=== PATIENT | male | born 1985 | race Caucasian/White ===

== ENCOUNTER 2017-10-03 04:39 | Emergency (ER) | payer MEDICARE, MEDICAID ==
[2017-10-03 05:28] LABS: ABS Basophils 0.1 10^3/ul (0-0.2); ABS Eosinophils 0.1 10^3/ul (0-0.6); ABS Lymphocytes 1.8 10^3/ul (1.0-4.8); ABS Monocytes 1.7 10^3/ul (0-0.8); ABS Neutrophils 12.5 10^3/ul (1.5-7.7); ABS Nucleated RBC 0 10^3/ul; Eosinophil % 0.8 % (0-6); Hematocrit 44 % (42-52); Hemoglobin 15.1 g/dl (14.0-18.0); Lymphocyte % 11.2 % (25-47); Mean Corpuscular HGB Conc 35 g/dl (31-36); Mean Corpuscular Hemoglobin 30 pg (27-31); Mean Corpuscular Volume 87 fL (80-94); Mean Platelet Volume 7 um3 (7.4-10.4); Nucleated Red Blood Cells % 0; Platelet Count 288 10^3/ul (150-450); Red Blood Count 5.04 10^6/ul (4.0-5.4); Red Cell Distribution Width 14 % (10.5-15); White Blood Count 16.2 10^3/ul (3.5-10.8)
[2017-10-03 05:33] LABS: INR 1.16 (0.77-1.02)
[2017-10-03 05:43] LABS: EGFR Non-African American 98.4 (>60)
[2017-10-03] MEDS ORDERED: NS 0.9% 1000 ML* 1,000 ML IV ONE (06:19)
--- NOTE | 2017-10-03 08:14 | RAD ---
HISTORY: Abdominal pain COMPARISONS: None VIEWS: Frontal views of the abdomen. FINDINGS: BOWEL: There is a nonobstructive bowel gas pattern. There is a large amount of stool within the colon. CALCULI: There are no abnormal calculi. BONES AND SOFT TISSUES: There are no osseous abnormalities. OTHER FINDINGS: There is elevation of the right hemidiaphragm There is no subphrenic gas. IMPRESSION: 1. NONOBSTRUCTIVE BOWEL GAS PATTERN. 2. ELEVATION OF THE RIGHT HEMIDIAPHRAGM.
[2017-10-03 08:23] LABS: Urine Appearance Cloudy; Urine Blood Negative (Negative); Urine Color Yellow; Urine Ketones Negative (Negative); Urine Protein Negative (Negative); Urine Specific Gravity 1.024 (1.010-1.030); Urine Urobilinogen Positive (Negative)
[2017-10-03] MEDS ORDERED: Iohexol 300* (CONTRAST) 10 ML SDV IV ONE (09:59)
--- NOTE | 2017-10-03 10:05 | ED ---
Leora Lake Alfonso, scribed for Luiz Kwong MD on 10/03/17 at 0506 . Abdominal Pain/Male - HPI Summary HPI Summary: This patient is a 31 year old M BIBA to [facility] accompanied by brother with a chief complaint of RLQ abdominal pain gradually worsening since earlier tonight. The patient rates the pain 7/10 in severity. Symptoms aggravated by deep breaths and cough. Symptoms alleviated by nothing. Patient denies urinary symptoms. - History of Current Complaint Chief Complaint: EDAbdPain Stated Complaint: ABD PAIN Hx Obtained From: Patient Onset/Duration: Gradual Onset, Still Present Timing: Constant Severity Currently: Moderate Pain Intensity: 7 Pain Scale Used: 0-10 Numeric Location: Discrete At: RLQ Aggravating Factor(s): Deep Breaths, Other: - Cough Alleviating Factor(s): Nothing Associated Signs And Symptoms: Negative: Urinary Symptoms - Allergies/Home Medications Allergies/Adverse Reactions: Allergies Allergy/AdvReac Type Severity Reaction Status Date / Time No Known Allergies Allergy Verified 08/10/16 20:45 PMH/Surg Hx/FS Hx/Imm Hx Endocrine/Hematology History: Denies: Hx Anticoagulant Therapy, Hx Diabetes, Hx Thyroid Disease Cardiovascular History: Reports: Hx Hypertension - On no Rx yet. Denies: Hx Congestive Heart Failure, Hx Deep Vein Thrombosis, Hx Myocardial Infarction, Hx Pacemaker/ICD Respiratory History: Reports: Hx Asthma Denies: Hx Chronic Obstructive Pulmonary Disease (COPD), Hx Lung Cancer, Hx Pneumonia, Hx Pulmonary Embolism GI History: Denies: Hx Gall Bladder Disease, Hx Gastrointestinal Bleed, Hx Ulcer, Hx Urosepsis History: Denies: Hx Kidney Stones, Hx Renal Disease Neurological History: Denies: Hx Dementia, Hx Migraine, Hx Seizures, Hx Transient Ischemic Attacks (TIA) Psychiatric History: Denies: Hx Anxiety, Hx Depression, Hx Schizophrenia, Hx Bipolar Disorder - Family History Known Family History: Negative: Cardiac Disease, Hypertension - Social History Alcohol Use: Occasionally Hx Substance Use: Yes Substance Use Type: Reports: Marijuana. Denies: Cocaine Hx Tobacco Use: Yes Smoking Status (MU): Current Some Day Smoker Amount Used/How Often: 1/2 ppd Review of Systems Positive: Abdominal Pain Positive: no symptoms reported All Other Systems Reviewed And Are Negative: Yes Physical Exam - Summary Physical Exam Summary: Appearance: Well-appearing, Well-nourished Skin: Warm Eyes: Exotropia in right eye consistent with baseline. ENT: Normal Neck: Supple, nontender Respiratory: Clear to auscultation Cardiovascular: Normal Abdomen: Soft, mild right CVA tenderness, multiple old abdominal scars from childhood surgeries. No rebound or guarding on palpation. Negative rovsing's, psoas, and obturator sign. Bowel: Present Musculoskeletal: LUE contraction consistent with baseline Neurological: Normal, A&Ox3, speaking in full sentences Psychiatric: Normal Triage Information Reviewed: Yes Vital Signs On Initial Exam: Initial Vitals BP 129/94 10/03/17 04:51 Vital Signs Reviewed: Yes Diagnostics - Vital Signs Vital Signs Temp Pulse Resp BP Pulse Ox 10/03/17 08:00 107 121/72 98 10/03/17 07:30 106 97 10/03/17 07:28 106 97 10/03/17 07:27 118/71 10/03/17 05:00 109 130/86 99 10/03/17 04:57 37.1 C 113 16 129/94 100 10/03/17 04:53 112 99 10/03/17 04:51 129/94 - Laboratory Lab Results: Lab Results 10/03/17 10/03/17 10/03/17 Range/Units 05:15 05:15 05:15 WBC 16.2 H (3.5-10.8) 10^3/ul RBC 5.04 (4.0-5.4) 10^6/ul Hgb 15.1 (14.0-18.0) g/dl Hct 44 (42-52) % MCV 87 (80-94) fL MCH 30 (27-31) pg MCHC 35 (31-36) g/dl RDW 14 (10.5-15) % Plt Count 288 (150-450) 10^3/ul MPV 7 L (7.4-10.4) um3 Neut % (Auto) 76.8 (38-83) % Lymph % (Auto) 11.2 L (25-47) % Pettis % (Auto) 10.6 H (1-9) % Eos % (Auto) 0.8 (0-6) % Baso % (Auto) 0.6 (0-2) % Absolute Neuts (auto) 12.5 H (1.5-7.7) 10^3/ul Absolute Lymphs (auto) 1.8 (1.0-4.8) 10^3/ul Absolute Monos (auto) 1.7 H (0-0.8) 10^3/ul Absolute Eos (auto) 0.1 (0-0.6) 10^3/ul Absolute Basos (auto) 0.1 (0-0.2) 10^3/ul Absolute Nucleated RBC 0 10^3/ul Nucleated RBC % 0 INR (Anticoag Therapy) 1.16 H (0.77-1.02) Sodium 135 (133-145) mmol/L Potassium 4.0 (3.5-5.0) mmol/L Chloride 100 L (101-111) mmol/L Carbon Dioxide 29 (22-32) mmol/L Anion Gap 6 (2-11) mmol/L BUN 24 (6-24) mg/dL Creatinine 0.89 (0.67-1.17) mg/dL Est GFR ( Amer) 126.6 (>60) Est GFR (Non-Af Amer) 98.4 (>60) BUN/Creatinine Ratio 27.0 H (8-20) Glucose 100 (70-100) mg/dL Calcium 9.9 (8.6-10.3) mg/dL Magnesium 2.0 (1.9-2.7) mg/dL Total Bilirubin 0.50 (0.2-1.0) mg/dL AST 13 (13-39) U/L ALT 16 (7-52) U/L Alkaline Phosphatase 51 (34-104) U/L C-Reactive Protein 23.24 H (< 5.00) mg/L Total Protein 6.9 (6.4-8.9) g/dL Albumin 4.4 (3.2-5.2) g/dL Globulin 2.5 (2-4) g/dL Albumin/Globulin Ratio 1.8 (1-3) Lipase 22 (11.0-82.0) U/L Urine Color Urine Appearance Urine pH (5-9) Ur Specific Muse (1.010-1.030) Urine Protein (Negative) Urine Ketones (Negative) Urine Blood (Negative) Urine Nitrate (Negative) Urine Bilirubin (Negative) Urine Urobilinogen (Negative) Ur Leukocyte Esterase (Negative) Urine Glucose (Negative) 10/03/17 Range/Units 07:53 WBC (3.5-10.8) 10^3/ul RBC (4.0-5.4) 10^6/ul Hgb (14.0-18.0) g/dl Hct (42-52) % MCV (80-94) fL MCH (27-31) pg MCHC (31-36) g/dl RDW (10.5-15) % Plt Count (150-450) 10^3/ul MPV (7.4-10.4) um3 Neut % (Auto) (38-83) % Lymph % (Auto) (25-47) % Pettis % (Auto) (1-9) % Eos % (Auto) (0-6) % Baso % (Auto) (0-2) % Absolute Neuts (auto) (1.5-7.7) 10^3/ul Absolute Lymphs (auto) (1.0-4.8) 10^3/ul Absolute Monos (auto) (0-0.8) 10^3/ul Absolute Eos (auto) (0-0.6) 10^3/ul Absolute Basos (auto) (0-0.2) 10^3/ul Absolute Nucleated RBC 10^3/ul Nucleated RBC % INR (Anticoag Therapy) (0.77-1.02) Sodium (133-145) mmol/L Potassium (3.5-5.0) mmol/L Chloride (101-111) mmol/L Carbon Dioxide (22-32) mmol/L Anion Gap (2-11) mmol/L BUN (6-24) mg/dL Creatinine (0.67-1.17) mg/dL Est GFR ( Amer) (>60) Est GFR (Non-Af Amer) (>60) BUN/Creatinine Ratio (8-20) Glucose (70-100) mg/dL Calcium (8.6-10.3) mg/dL Magnesium (1.9-2.7) mg/dL Total Bilirubin (0.2-1.0) mg/dL AST (13-39) U/L ALT (7-52) U/L Alkaline Phosphatase (34-104) U/L C-Reactive Protein (< 5.00) mg/L Total Protein (6.4-8.9) g/dL Albumin (3.2-5.2) g/dL Globulin (2-4) g/dL Albumin/Globulin Ratio (1-3) Lipase (11.0-82.0) U/L Urine Color Yellow Urine Appearance Cloudy Urine pH 7.0 (5-9) Ur Specific Muse 1.024 (1.010-1.030) Urine Protein Negative (Negative) Urine Ketones Negative (Negative) Urine Blood Negative (Negative) Urine Nitrate Negative (Negative) Urine Bilirubin Negative (Negative) Urine Urobilinogen Positive H (Negative) Ur Leukocyte Esterase Negative (Negative) Urine Glucose Negative (Negative) Result Diagrams: 10/03/17 05:15 10/03/17 05:15 Lab Statement: Any lab studies that have been ordered have been reviewed, and results considered in the medical decision making process. - Radiology Abdomen X-Ray Radiology Interpretation Completed By: ED Physician - negative for any acute patholog Abdominal Pain Fem Course/Dx - Course Assessment/Plan: ct neg for acute pathology, pt feels better after course in ED , instructed to fu wt primary care physician and to return for any wrosening or concerning sxs. agrees to and understnads dc instructinos. - Diagnoses Provider Diagnoses: Colitis Discharge - Discharge Plan Condition: Stable Disposition: HOME Prescriptions: traMADol TAB* [Ultram*] 25 mg PO Q6HR PRN #10 tab MDD 4 PRN Reason: Pain Patient Education Materials: Colitis (ED) Referrals: Westley Galindo MD [Medical Doctor] - Liane Nair MD [Primary Care Provider] - Additional Instructions: Please follow up with Dr. Galindo, channel opener. Follow up with your primary care provider. RETURN TO THE ED FOR ANY WORSENING OR NEW SYMPTOMS. The documentation as recorded by the Leora francisco Alfonso accurately reflects the service I personally performed and the decisions made by , Luiz Kwong MD.
--- NOTE | 2017-10-03 13:22 | RAD ---
INDICATION: RIGHT lower quadrant pain. COMPARISON: Abdomen radiograph the same date. TECHNIQUE: Multidetector CT images were obtained from the lung bases to the ischial tuberosities with 72 mL Omnipaque 300 IV and oral contrast. Multiplanar reformation. REPORT: Unremarkable visualized inferior thorax. The liver, gallbladder, pancreas, and spleen are unremarkable. Negative for CT abnormality of the upper GI or small bowel. Normal appendix visualized anterior to the RIGHT psoas muscle at the pelvis. There is mural thickening at the proximal segment of the hepatic flexure of the colon with significant perienteric inflammatory change and small volume of fluid in the RIGHT paracolic gutter. No free air evident. Mild burden of colonic diverticulosis without definitive visualized inflamed diverticula at the level of the splenic flexure. Moderate rectal distention with formed stool. Normal adrenal glands. Unremarkable kidneys with symmetric nephrograms and pyelograms. Unremarkable ureters and partially distended urinary bladder. No suspicious finding of the visualized male urogenital structures. Negative for lymphadenopathy. Normal diameter abdominal aorta and iliac arteries with mild atherosclerotic plaque. Physiologic distention of the IVC. Negative for suspicious osseous lesions. IMPRESSION: 1. Mural thickening and perienteric inflammatory change at the proximal segment of the hepatic flexure of the colon. Negative for free air or perienteric abscess. Small volume of free fluid at the RIGHT paracolic gutter. No definitive associated inflamed appearing diverticula to strongly favor acute diverticulitis. Consider focal colitis, potential inflammatory bowel disease, and potential colonic neoplasm. 2. Normal appendix documented. 3. Negative for lymphadenopathy. 4. Negative for lesions of the solid abdominal viscera.
[2017-10-03 14:54] VITALS: BP 133/74
--- NOTE | 2017-10-04 09:20 | ED ---
[place] Angela, scribed for Julio Gar MD on 10/03/17 at 0924 . Progress - Progress Note Progress Note: This pt was signed out by Dr. Kwong, pending disposition, awaiting labs. Pt is a 31 y/o male presenting to [facility] c/o RLQ abdominal pain gradually worsening since earlier last night. On re-evaluation, pt still has pain and notes back pain. Physical exam: VITAL SIGNS: Reviewed. GENERAL: Patient is a well-developed and nourished male who is lying comfortable in the stretcher. Patient is not in any acute respiratory distress. HEAD AND FACE: No signs of trauma. No ecchymosis, hematomas or skull depressions. No sinus tenderness. EYES: PERRLA, EOMI x 2, No injected conjunctiva, no nystagmus. EARS: Hearing grossly intact. Ear canals and tympanic membranes are within normal limits. MOUTH: Oropharynx within normal limits. NECK: Supple, trachea is midline, no adenopathy, no JVD, no carotid bruit, no c- spine tenderness, neck with full ROM. CHEST: Symmetric, no tenderness at palpation LUNGS: Clear to auscultation bilaterally. No wheezing or crackles. CVS: Regular rate and rhythm, S1 and S2 present, no murmurs or gallops appreciated. ABDOMEN: Soft. Right lower quadrant tenderness. No signs of distention. No rebound no guarding, and no masses palpated. Bowel sounds are normal. Right costovertebral tenderness. EXTREMITIES: FROM in all major joints, no edema, no cyanosis or clubbing. NEURO: Alert and oriented x 3. No acute neurological deficits. Speech is normal and follows commands. SKIN: Dry and warm Pt will be discharged home, in stable condition, with a diagnosis of focal colitis. - Results/Orders Results/Orders: CT Abdomen/Pelvis, per radiologist: Impression: 1. Mural thickening and perienteric inflammatory change at the proximal segment of the hepatic flexure of the colon. Negative for free air or perienteric abscess. Small volume of free fluid at the RIGHT paracolic gutter. No definitive associated inflamed appearing diverticula to strongly favor acute diverticulitis. Consider focal colitis, potential inflammatory bowel disease, and potential colonic neoplasm. 2. Normal appendix documented. 3. Negative for lymphadenopathy. 4. Negative for lesions of the solid abdominal viscera. ED physician has reviewed this radiology report and agrees. Re-Evaluation - Re-Evaluation First Eval Re-Evaluation Time: 09:08 Comment: Pt still has abd pain and endorses back pain. Second Eval Re-Evaluation Time: 13:50 Comment: I reviewed the abdomen/pelvis CT with the pt. Course/Dx - Course Course Of Treatment: This pt was signed out by Dr. Kwong to follow up on the abdomen/pelvis CT. CT abdomen/pelvis shows 1. Mural thickening and perienteric inflammatory change at the proximal segment of the hepatic flexure of the colon. Negative for free air or perienteric abscess. Small volume of free fluid at the RIGHT paracolic gutter. No definitive associated inflamed appearing diverticula to strongly favor acute diverticulitis. Consider focal colitis, potential inflammatory bowel disease, and potential colonic neoplasm. 2. Normal appendix documented. 3. Negative for lymphadenopathy. 4. Negative for lesions of the solid abdominal viscera. Test results show WBC of 16.2, CRP of 23.2. UA is negative for UTI. It seems the pt has colitis, therefore he was advised to follow up with GI to rule out any type of malignancy. Pt is hemodynamically stable, alert and oriented x3. Pt will be discharged home, in stable condition , with a diagnosis of focal colitis. - Diagnoses Provider Diagnoses: Colitis The documentation as recorded by the Robin francisco Angela accurately reflects the service I personally performed and the decisions made by me, Julio Gar MD.
== END 2017-10-03 14:52 | disposition home or self-care (01) ==
LOC: ED 04:39
DX: K52.9 Noninfective gastroenteritis and colitis, unspecified (principal)
CPT/HCPCS: 36415; 74000; 74177; 80053; 81003; 83690; 83735; 85025; 85610; 86140; 96360; 99284; Q9967

== ENCOUNTER → 2019-03-06 13:47 | Emergency (ER) | payer MEDICARE, MEDICAID ==
[2019-03-06 16:45] LABS: ABS Basophils 0.1 10^3/ul (0-0.2); ABS Eosinophils 0.2 10^3/ul (0-0.6); ABS Monocytes 0.9 10^3/ul (0-0.8); ABS Neutrophils 4.3 10^3/ul (1.5-7.7); Eosinophil % 2.6 %; Hematocrit 46 % (42-52); Hemoglobin 15.5 g/dL (14.0-18.0); Lymphocyte % 35.3 %; Mean Corpuscular HGB Conc 34 g/dL (31-36); Mean Corpuscular Hemoglobin 30 pg (27-31); Mean Corpuscular Volume 90 fL (80-94); Mean Platelet Volume 6.6 fL (7.4-10.4); Platelet Count 342 10^3/uL (150-450); Red Blood Count 5.09 10^6 /uL (4.18-5.48); Red Cell Distribution Width 14 % (10.5-15); White Blood Count 8.4 10^3/uL (3.5-10.8)
[2019-03-06 17:05] LABS: Albumin 4.8 g/dL (3.2-5.2); Albumin/Globulin Ratio 1.4 (1-3); BUN/Creatinine Ratio 9.2 (8-20); Calcium 10.4 mg/dL (8.6-10.3); EGFR African American 141.2 (>60); EGFR Non-African American 116.7 (>60); Globulin 3.4 g/dL (2-4); Potassium 4.3 mmol/L (3.5-5.0); Total Bilirubin 0.4 mg/dL (0.2-1.0); Total Protein 8.2 g/dL (6.4-8.9)
--- NOTE | 2019-03-06 17:14 | ED ---
Abdominal Pain/Male - HPI Summary HPI Summary: This patient is a 33 year old male presenting to [facility] with a chief complaint of abdominal pain since one week ago. He states the pain is an intermittent pain that radiates to his scrotum. He rates his pain 3/10 in severity when he has tashia pain. He states he has been having normal BM [employer]. Pt denies any fever, chills, erythema of eyes, sore throat, CP, SOB, cough, N/V, dysuria, hematuria, myalgia, edema, rash, or dizziness. - History of Current Complaint Chief Complaint: EDAbdPain Stated Complaint: PAIN FROM ABD DOWN TO TESTICLES PER PT Time Seen by Provider: 03/06/19 17:07 Hx Obtained From: Patient Timing: Intermittent Pain Intensity: 3 Pain Scale Used: 0-10 Numeric Location: Suprapubic - Allergies/Home Medications Allergies/Adverse Reactions: Allergies Allergy/AdvReac Type Severity Reaction Status Date / Time No Known Allergies Allergy Verified 03/06/19 14:09 Home Medications: Home Medications NK [No Home Medications Reported] 03/06/19 [History Confirmed 03/06/19] PMH/Surg Hx/FS Hx/Imm Hx Endocrine/Hematology History: Denies: Hx Anticoagulant Therapy, Hx Diabetes, Hx Thyroid Disease Cardiovascular History: Reports: Hx Hypertension - On no Rx yet. Denies: Hx Congestive Heart Failure, Hx Deep Vein Thrombosis, Hx Myocardial Infarction, Hx Pacemaker/ICD Respiratory History: Reports: Hx Asthma Denies: Hx Chronic Obstructive Pulmonary Disease (COPD), Hx Lung Cancer, Hx Pneumonia, Hx Pulmonary Embolism GI History: Denies: Hx Gall Bladder Disease, Hx Gastrointestinal Bleed, Hx Ulcer, Hx Urosepsis History: Denies: Hx Kidney Stones, Hx Renal Disease Neurological History: Denies: Hx Dementia, Hx Migraine, Hx Seizures, Hx Transient Ischemic Attacks (TIA) Psychiatric History: Denies: Hx Anxiety, Hx Depression, Hx Schizophrenia, Hx Bipolar Disorder Infectious Disease History: No Infectious Disease History: Denies: Traveled Outside the [place] in Last 30 Days - Family History Known Family History: Negative: Cardiac Disease, Hypertension - Social History Alcohol Use: Occasionally Hx Substance Use: Yes Substance Use Type: Reports: Marijuana. Denies: Cocaine Hx Tobacco Use: Yes Smoking Status (MU): Current Some Day Smoker Amount Used/How Often: 1/2 ppd Review of Systems Negative: Fever, Chills Negative: Erythema Negative: Sore Throat Negative: Chest Pain Negative: Shortness Of Breath, Cough Positive: Abdominal Pain. Negative: Vomiting, Nausea Negative: dysuria, hematuria Negative: Myalgia, Edema Negative: Rash Neurological: Other - neg: Dizziness All Other Systems Reviewed And Are Negative: No Physical Exam - Summary Physical Exam Summary: Constitutional: Well-developed, Well-nourished, Alert. (-) Distressed Skin: Warm, Dry HENT: Normocephalic; Atraumatic Eyes: Conjunctiva normal Neck: Musculoskeletal ROM normal neck. (-) JVD, (-) Stridor, (-) Tracheal deviation Cardio: Rhythm regular, rate normal, Heart sounds normal; Intact distal pulses; The pedal pulses are 2+ and symmetric. Radial pulses are 2+ and symmetric. (-) Murmur Pulmonary/Chest wall: Effort normal. (-) Respiratory distress, (-) Wheezes, (-) Rales Abd: Soft, (-) tenderness, (-) Distension, (-) Guarding, (-) Rebound. Bowel sounds present. Left-sided periumbilical Hernia, easily reduced, soft. Musculoskeletal: (-) Edema Lymph: (-) Cervical adenopathy Neuro: Alert, Oriented x3 GIGU: No palpable inguinal hernias. Psych: Mood and affect Normal Triage Information Reviewed: Yes Vital Signs On Initial Exam: Initial Vitals Temp Pulse Resp BP Pulse Ox 99.4 F 103 16 147/94 98 03/06/19 14:05 03/06/19 14:05 03/06/19 14:05 03/06/19 14:05 03/06/19 14:05 Vital Signs Reviewed: Yes Diagnostics - Vital Signs Vital Signs Temp Pulse Resp BP Pulse Ox 03/06/19 16:14 99.4 F 95 16 142/89 100 03/06/19 14:05 99.4 F 103 16 147/94 98 - Laboratory Lab Results: Lab Results 03/06/19 03/06/19 03/06/19 Range/Units 16:33 16:33 16:33 WBC 8.4 (3.5-10.8) 10^3/uL RBC 5.09 (4.18-5.48) 10^6 /uL Hgb 15.5 (14.0-18.0) g/dL Hct 46 (42-52) % MCV 90 (80-94) fL MCH 30 (27-31) pg MCHC 34 (31-36) g/dL RDW 14 (10.5-15) % Plt Count 342 (150-450) 10^3/uL MPV 6.6 L (7.4-10.4) fL Neut % (Auto) 50.8 % Lymph % (Auto) 35.3 % [place] % (Auto) 10.3 % Eos % (Auto) 2.6 % Baso % (Auto) 1.0 % Absolute Neuts (auto) 4.3 (1.5-7.7) 10^3/ul Absolute Lymphs (auto) 3.0 (1.0-4.8) 10^3/ul Absolute Monos (auto) 0.9 H (0-0.8) 10^3/ul Absolute Eos (auto) 0.2 (0-0.6) 10^3/ul Absolute Basos (auto) 0.1 (0-0.2) 10^3/ul Absolute Nucleated RBC 0.0 10^3/ul Nucleated RBC % 0.0 Sodium 137 (135-145) mmol/L Potassium 4.3 (3.5-5.0) mmol/L Chloride 101 (101-111) mmol/L Carbon Dioxide 30 (22-32) mmol/L Anion Gap 6 (2-11) mmol/L BUN 7 (6-24) mg/dL Creatinine 0.76 (0.67-1.17) mg/dL Est GFR ( Amer) 141.2 (>60) Est GFR (Non-Af Amer) 116.7 (>60) BUN/Creatinine Ratio 9.2 (8-20) Glucose 106 H (70-100) mg/dL Lactic Acid 1.4 (0.5-2.0) mmol/L Calcium 10.4 H (8.6-10.3) mg/dL Total Bilirubin 0.40 (0.2-1.0) mg/dL AST 22 (13-39) U/L ALT 17 (7-52) U/L Alkaline Phosphatase 64 (34-104) U/L C-Reactive Protein 25.00 H (<8.01) mg/L Total Protein 8.2 (6.4-8.9) g/dL Albumin 4.8 (3.2-5.2) g/dL Globulin 3.4 (2-4) g/dL Albumin/Globulin Ratio 1.4 (1-3) Lipase 21 (11.0-82.0) U/L Result Diagrams: 03/06/19 16:33 03/06/19 16:33 Lab Statement: Any lab studies that have been ordered have been reviewed, and results considered in the medical decision making process. Abdominal Pain Male Course/Dx - Course Course Of Treatment: This patient is a 33 year old male presenting to [facility] with a chief complaint of abdominal pain since one week ago. Physical exam was remarkable for a left-sided umbilical hernia. His pain is episodic and self- resolving. He currently has no pain. Pain has improved since yesterday. There were no signs of bowel obstruction. The patient will be discharged and referred to a surgeon to treat the hernia. This plan was discussed with the patient and he was agreeable with this plan. - Diagnoses Provider Diagnoses: Umbilical hernia Discharge - Sign-Out/Discharge Documenting (check all that apply): Patient Departure - Discharge - Discharge Plan Condition: Stable Disposition: HOME Patient Education Materials: Umbilical Hernia (ED) Referrals: Fabricio Barrientos MD [Medical Doctor] - 2 Days Additional Instructions: Follow up with surgery in 2-3 days. Return to ED with any new or worsening symptoms. - Attestation Statements Document Initiated by Scribe: Yes Documenting Scribe: Ganesh Scales Provider For Whom Scribe is Documenting (Include Credential): Michoacano Solis MD Scribe Attestation: Ganesh Lake, scribed for Michoacano Solis MD on 03/06/19 at 1724. Status of Scribe Document: Ready
[2019-03-06 17:56] VITALS: BP 158/97
== END | disposition home or self-care (01) ==
LOC: ED 13:47
DX: K42.9 Umbilical hernia without obstruction or gangrene (principal); J45.909 Unspecified asthma, uncomplicated; I10 Essential (primary) hypertension; F17.210 Nicotine dependence, cigarettes, uncomplicated
CPT/HCPCS: 36415; 80053; 83605; 83690; 85025; 86140; 99282

== ENCOUNTER 2019-03-11 11:30 | Emergency (ER) | payer MEDICARE, MEDICAID ==
--- NOTE | 2019-03-11 11:51 | ED ---
Abdominal Pain/Male - HPI Summary HPI Summary: A 33 y/o male presents to [facility] with a chief complaint of genital pain since yesterday. Per family, the patient was at his work last week when he was lifting heavy things and was reportedly diagnosed with a hernia. The patient claims that he was taking apart a bathroom and lifted some things that were probably too heavy for him. He has an appointment scheduled for tomorrow but came in to the ED due to his pain. At triage he rated his pain as a 10/10 in severity. He also reports dysuria since yesterday, claiming that it pollock when he urinates. He denies a SHx on his abdomen. He admits to smoking 10 cigarettes per day and drinking a couple times per week. He notes a Hx of asthma and HTN. He takes Lisinopril and Spiriva. - History of Current Complaint Chief Complaint: EDAbdPain Stated Complaint: HERNIA PER PT Time Seen by Provider: 03/11/19 11:40 Hx Obtained From: Patient, Family/Inbound Call Center Representative Onset/Duration: Sudden Onset, Lasting Days, Still Present Timing: Constant, Lasting Days Severity Initially: Severe Severity Currently: Severe Pain Intensity: 10 Pain Scale Used: 0-10 Numeric Location: Groin Radiates: No Character: Other: - unable to describe Aggravating Factor(s): Nothing Alleviating Factor(s): Nothing Associated Signs And Symptoms: Positive: Urinary Symptoms - dysuria. Negative: Fever - Allergies/Home Medications Allergies/Adverse Reactions: Allergies Allergy/AdvReac Type Severity Reaction Status Date / Time No Known Allergies Allergy Verified 03/11/19 11:36 PMH/Surg Hx/FS Hx/Imm Hx Endocrine/Hematology History: Denies: Hx Anticoagulant Therapy, Hx Diabetes, Hx Thyroid Disease Cardiovascular History: Reports: Hx Hypertension - On no Rx yet. Denies: Hx Congestive Heart Failure, Hx Deep Vein Thrombosis, Hx Myocardial Infarction, Hx Pacemaker/ICD Respiratory History: Reports: Hx Asthma Denies: Hx Chronic Obstructive Pulmonary Disease (COPD), Hx Lung Cancer, Hx Pneumonia, Hx Pulmonary Embolism GI History: Denies: Hx Gall Bladder Disease, Hx Gastrointestinal Bleed, Hx Ulcer, Hx Urosepsis History: Denies: Hx Kidney Stones, Hx Renal Disease Neurological History: Denies: Hx Dementia, Hx Migraine, Hx Seizures, Hx Transient Ischemic Attacks (TIA) Psychiatric History: Denies: Hx Anxiety, Hx Depression, Hx Schizophrenia, Hx Bipolar Disorder Infectious Disease History: No Infectious Disease History: Denies: Traveled Outside the [place] in Last 30 Days - Family History Known Family History: Negative: Cardiac Disease, Hypertension - Social History Alcohol Use: Occasionally Hx Substance Use: Yes Substance Use Type: Reports: Marijuana. Denies: Cocaine Hx Tobacco Use: Yes Smoking Status (MU): Current Some Day Smoker Amount Used/How Often: 1/2 ppd Review of Systems Negative: Fever Positive: Other - positive: Pt was diagnosed with a hernia, reports genital pain Positive: dysuria All Other Systems Reviewed And Are Negative: Yes Physical Exam - Summary Physical Exam Summary: Appearance: Well-appearing, Well-nourished, lying in bed comfortably Skin: Warm, dry, no obvious rash Eyes: sclera anicteric, no conjunctival pallor ENT: mucous membranes moist, pharynx appears normal Neck: Supple, nontender Respiratory: Clear to auscultation, no signs of respiratory distress Cardiovascular: Normal S1, S2. No murmurs. Normal distal pulses in tibial and radial bilaterally. Abdomen: Soft, nontender, normal active bowel sounds present, no paraumbilical or inguinal hernias felt Musculoskeletal: Normal, Strength/ROM Intact Neurological: A&Ox3, awake and alert, mentation is normal, speech is fluent and appropriate Psychiatric: affect is normal, does not appear anxious or depressed Triage Information Reviewed: Yes Vital Signs On Initial Exam: Initial Vitals Temp Pulse Resp BP Pulse Ox 99.3 F 118 16 174/110 100 03/11/19 11:32 03/11/19 11:32 03/11/19 11:32 03/11/19 11:32 03/11/19 11:32 Vital Signs Reviewed: Yes Diagnostics - Vital Signs Vital Signs Temp Pulse Resp BP Pulse Ox 03/11/19 11:32 99.3 F 118 16 174/110 100 - Laboratory Result Diagrams: 03/11/19 12:09 03/11/19 12:09 Lab Statement: Any lab studies that have been ordered have been reviewed, and results considered in the medical decision making process. - CT abdomen/pelvis CT Interpretation Completed By: Radiologist Summary of CT Findings: SMALL BILATERAL INGUINAL HERNIAS. FATTY INFILTRATION OF THE LIVER. NO OBSTRUCTION. ED physician has reviewed this imaging report. Abdominal Pain Male Course/Dx - Course Course Of Treatment: A 33 y/o male presents to [facility] with a chief complaint of genital pain since yesterday. Per family, the patient was at his work last week when he was lifting heavy things and was reportedly diagnosed with a hernia. The physical exam revealed no paraumbilical or inguinal hernias felt. In the ED course the patient was given Iohexol IV. Abdomen/pelvis CT impression: SMALL BILATERAL INGUINAL HERNIAS. FATTY INFILTRATION OF THE LIVER. NO OBSTRUCTION. Bloodwork, chemistry and urines obtained and are WNL. Case discussed with Dr. Faustin, surgeon, who agrees that if the hernias give the patient trouble that he should schedule repair of them. The patient will be discharged home and is agreeable with this plan. - Diagnoses Provider Diagnoses: Bilateral inguinal hernia - Provider Notifications Discussed Care Of Patient With: Marleen Faustin Time Discussed With Above Provider: 15:59 Instructed by Provider To: Other - agrees that if the hernias give the patient trouble that he should schedule repair of them Discharge - Sign-Out/Discharge Documenting (check all that apply): Patient Departure - DC Patient Received Moderate/Deep Sedation with Procedure: No - Discharge Plan Condition: Good Disposition: HOME Prescriptions: Ibuprofen TAB* [Motrin TAB* 600 MG] 600 mg PO Q8H PRN #30 tab PRN Reason: Pain Patient Education Materials: Inguinal Hernia (ED) Referrals: Liane Nair MD [Primary Care Provider] - Additional Instructions: The CAT scan did reveal hernias and both groins, although I was unable to definitively identify these when I examine you. I did discuss this with her general surgeon who looked at your CT scan and agrees that if these hernias are giving you trouble that would be a good reason to go ahead and schedule repair of thumb. I have given you to contact information for our Gen. surgery office, please call them later today or tomorrow to schedule an appointment. In the meantime definitely avoid the heavy lifting that seemed to have triggered the flaring in your pain. - Billing Disposition and Condition Condition: GOOD Disposition: Home - Attestation Statements Document Initiated by Scribe: Yes Documenting Scribe: Sukhdev Koehler Provider For Whom Christiane is Documenting (Include Credential): Simone Ontiveros MD Scribe Attestation: I, Sukhdev Koehler, scribed for Simone Ontiveros MD on 03/13/19 at 0937. Scribe Documentation Reviewed: Yes Provider Attestation: The documentation as recorded by the scribe, Sukhdev Koehler accurately reflects the service I personally performed and the decisions made by me, Simone Ontiveros MD Status of Scribe Document: Viewed
[2019-03-11 12:21] LABS: ABS Basophils 0.1 10^3/ul (0-0.2); ABS Eosinophils 0.2 10^3/ul (0-0.6); ABS Lymphocytes 2.7 10^3/ul (1.0-4.8); ABS Neutrophils 8.8 10^3/ul (1.5-7.7); Eosinophil % 1.6 %; Hematocrit 45 % (42-52); Hemoglobin 15.6 g/dL (14.0-18.0); Lymphocyte % 21.1 %; Mean Corpuscular HGB Conc 34 g/dL (31-36); Mean Corpuscular Hemoglobin 31 pg (27-31); Mean Corpuscular Volume 90 fL (80-94); Mean Platelet Volume 6.5 fL (7.4-10.4); Platelet Count 387 10^3/uL (150-450); Red Blood Count 5.07 10^6 /uL (4.18-5.48); Red Cell Distribution Width 14 % (10.5-15); White Blood Count 12.7 10^3/uL (3.5-10.8)
[2019-03-11 12:41] LABS: Albumin 4.5 g/dL (3.2-5.2); Albumin/Globulin Ratio 1.5 (1-3); BUN/Creatinine Ratio 8.5 (8-20); Calcium 10.1 mg/dL (8.6-10.3); EGFR African American 152.8 (>60); EGFR Non-African American 126.3 (>60); Globulin 3.1 g/dL (2-4); Potassium 3.6 mmol/L (3.5-5.0); Total Bilirubin 0.5 mg/dL (0.2-1.0); Total Protein 7.6 g/dL (6.4-8.9)
[2019-03-11 13:53] LABS: Urine Appearance Clear; Urine Bilirubin Negative (Negative); Urine Blood Negative (Negative); Urine Color Straw; Urine Glucose Negative (Negative); Urine Ketones Negative (Negative); Urine Nitrite Negative (Negative); Urine Protein Negative (Negative); Urine Specific Gravity 1.003 (1.010-1.030); Urine Urobilinogen Negative (Negative)
[2019-03-11] MEDS ORDERED: Iohexol 300* (CONTRAST) 10 ML SDV IV ONE (14:13)
[2019-03-11 16:20] VITALS: BP 166/128
== END 2019-03-11 16:23 | disposition home or self-care (01) ==
LOC: ED 11:30
DX: K40.20 Bilateral inguinal hernia, without obstruction or gangrene, not specified as recurrent (principal); I10 Essential (primary) hypertension
CPT/HCPCS: 36415; 74177; 80053; 81003; 83690; 85025; 96374; 99283; Q9967